=== PATIENT | female | born 1960 | race Caucasian/White ===

== ENCOUNTER 2017-02-23 20:41 | Emergency (ER) | payer OTHER ==
[~2017-02-23] VITALS: Ht 165.1 cm; Wt 62.6 kg
[2017-02-23 20:43] VITALS: BP 156/89
[2017-02-23] MEDS ORDERED: LEVO137T2 PO (20:49)
[2017-02-23] MEDS ORDERED: OXYcodone/APAP 5/325MG TABLET ONE (21:01)
[2017-02-23] MEDS ORDERED: ONDANSETRON ODT 4 MG ONE (21:02)
[2017-02-23] MEDS ORDERED: OXYcodone/APAP 5/325MG TABLET PO ONE (21:30)
[2017-02-23] MEDS ORDERED: ONDANSETRON ODT 4 MG PO ONE (21:30)
== END 2017-02-23 21:15 | disposition home or self-care (01) ==
LOC: ED 20:52
DX: K08.89 Other specified disorders of teeth and supporting structures (principal)
CPT/HCPCS: 99283; Q0162